=== PATIENT | male | born 1970 | race Two or more races ===

== ENCOUNTER 2021-11-03 20:32 | Inpatient (IN) | payer MEDICAID, OTHER, SELFPAY ==
[~2021-11-03] VITALS: Ht 182.9 cm; Wt 132.0 kg
[2021-11-03 22:21] LABS: Eosinophils # (auto) 0 10 ^3/uL (0-0.8); Lymphocytes # (auto) 0.3 10 ^3/uL (0.4-5.4); Mean Corpuscular Hgb Conc. 32.9 g/dL (32.0-36.0); Red Cell Distribution Width 15.4 % (11.8-14.3)
[2021-11-03 22:23] LABS: Basophils # (auto) 0.1 10 ^3/uL (0-0.2); Basophils % (auto) 0.7 % (0.0-2.0); Hemoglobin 19.4 g/dL (13.5-17.5); Lymphocytes % (auto) 3.3 % (10.0-50.0); Mean Corpuscular Hemoglobin 29.3 pg (28.0-32.0); Mean Corpuscular Volume 88.9 fL (80.0-100.0); Monocytes # (auto) 0.7 10 ^3/uL (0-1.3); Monocytes % (auto) 7.6 % (0.0-12.0); Neutrophils # (auto) 8.4 10 ^3/uL (1.6-8.6); Neutrophils % (auto) 88.4 % (37.0-80.0); Nucleated Red Blood Cells % 0.3 %; Red Blood Cells 6.65 10^6/uL (4.5-5.90); White Blood Cell 9.5 10^3/uL (4.4-10.8)
[2021-11-03 22:30] LABS: Hematocrit 59.1 % (41.0-53.0)
[2021-11-03] MEDS ORDERED: HYDROmorphone HCL 2 MG/ML VL IV ONE (22:30)
[2021-11-03 22:51] LABS: Albumin 2.8 g/dL (3.4-5.0); Calcium 8.4 mg/dL (8.5-10.1)
[2021-11-03 23:01] LABS: BUN/Creatinine Ratio 17.1; Bilirubin, Total 1.9 mg/dL (0.2-1.0); Total Protein 7.9 g/dL (6.4-8.2)
[2021-11-04] MEDS ORDERED: HYDROcodone-ACET 5/325MG TAB PO PRN (03:15)
[2021-11-04] MEDS ORDERED: ONDANSETRON HCL 4 MG/2 ML VIAL IV PRN (03:15)
[2021-11-04] MEDS ORDERED: MORPHINE SULFATE INJECTION 2 MG/ML SYRG IV PRN (03:15)
[2021-11-04] MEDS ORDERED: NITROGLYCERIN 0.4 MG SL TAB SL PRN (03:15)
[2021-11-04] MEDS ORDERED: DOCUSATE SOD 100 MG CAP PO PRN (03:15)
[2021-11-04 07:06] LABS: Eosinophils # (auto) 0 10 ^3/uL (0-0.8); Lymphocytes # (auto) 0.6 10 ^3/uL (0.4-5.4)
[2021-11-04 07:08] LABS: Basophils # (auto) 0.1 10 ^3/uL (0-0.2); Basophils % (auto) 0.8 % (0.0-2.0); Hematocrit 55.9 % (41.0-53.0); Hemoglobin 18.3 g/dL (13.5-17.5); Lymphocytes % (auto) 5.8 % (10.0-50.0); Mean Corpuscular Hgb Conc. 32.7 g/dL (32.0-36.0); Mean Corpuscular Volume 88.6 fL (80.0-100.0); Monocytes # (auto) 1.1 10 ^3/uL (0-1.3); Monocytes % (auto) 11.8 % (0.0-12.0); Neutrophils # (auto) 7.8 10 ^3/uL (1.6-8.6); Neutrophils % (auto) 81.6 % (37.0-80.0); Nucleated Red Blood Cells % 0.4 %; Red Cell Distribution Width 15.7 % (11.8-14.3); White Blood Cell 9.6 10^3/uL (4.4-10.8)
[2021-11-04 07:51] LABS: Alanine Aminotransferase 72 U/L (16-61); Albumin 2.4 g/dL (3.4-5.0); Alkaline Phosphatase 111 U/L (45-117); Anion Gap 9 (5-15); Aspartate Aminotransferase 195 U/L (15-37); BUN/Creatinine Ratio 18.1; Bilirubin, Total 3.3 mg/dL (0.2-1.0); Blood Urea Nitrogen 42 mg/dL (7-18); Calcium 8.5 mg/dL (8.5-10.1); Carbon Dioxide 21 mmol/L (21-32); Chloride 105 mmol/L (98-107); GFR African American 38 mL/min; GFR Non-African American 32 mL/min; Glucose 106 mg/dL (74-106); Potassium 4.5 mmol/L (3.5-5.1); Sodium 135 mmol/L (136-145); Total Protein 7.9 g/dL (6.4-8.2)
[2021-11-04] MEDS ORDERED: HEPARIN 1,000 UNITS/ml 1ML VIAL IV ONE (08:15)
[2021-11-04] MEDS ORDERED: HEPARIN SODIUM (PORCINE) 5000 UNITS/ML 1ML VIAL SC SCH (10:00)
[2021-11-04] MEDS ORDERED: FAMOTIDINE (10MG/ML) 2ML VL IV SCH (10:00)
[2021-11-04] MEDS: SODIUM CHLORIDE 0.9% 1,000 ML IV SCH ×2 (12:37→21:47)
[2021-11-04] MEDS: ZINC SULFATE 220mg CAP or TAB PO SCH (12:37)
[2021-11-04] MEDS: FAMOTIDINE (10MG/ML) 2ML VL IV SCH (12:38)
[2021-11-04] MEDS: ASCORBIC ACID 500 MG TAB PO SCH ×2 (12:38→23:47)
[2021-11-04] MEDS: MULTIPLE VITAMIN TAB PO SCH (12:38)
[2021-11-04] MEDS: AZITHROMYCIN 500MG/ 250ML 250 ML IV SCH (12:39)
[2021-11-04] MEDS ORDERED: LORazepam 2MG/ML-1ML VIAL IV PRN (15:15)
[2021-11-04 15:52] LABS: Cholesterol 104 mg/dL (< 200); HDL Cholesterol 28 mg/dL (40-59); LDL Cholesterol 68 mg/dL (< 100); Triglycerides 125 mg/dL (< 150)
[2021-11-04] MEDS: HEPARIN SODIUM (PORCINE) 5000 UNITS/ML 1ML VIAL SC SCH (23:48)
[2021-11-05 00:20] VITALS: BP 154/96
[2021-11-05 05:00] VITALS: BP 162/88
[2021-11-05 08:06] LABS: Albumin 2.3 g/dL (3.4-5.0); Calcium 8.3 mg/dL (8.5-10.1); Potassium 4.7 mmol/L (3.5-5.1)
[2021-11-05 08:10] LABS: BUN/Creatinine Ratio 20.9; Bilirubin, Total 2.3 mg/dL (0.2-1.0); Total Protein 6.8 g/dL (6.4-8.2)
[2021-11-05 08:16] LABS: Basophils # (auto) 0 10 ^3/uL (0-0.2); Basophils % (auto) 0.5 % (0.0-2.0); Eosinophils # (auto) 0 10 ^3/uL (0-0.8); Hematocrit 51.7 % (41.0-53.0); Hemoglobin 16.9 g/dL (13.5-17.5); Lymphocytes # (auto) 0.7 10 ^3/uL (0.4-5.4); Lymphocytes % (auto) 14.4 % (10.0-50.0); Mean Corpuscular Hemoglobin 29.3 pg (28.0-32.0); Mean Corpuscular Hgb Conc. 32.6 g/dL (32.0-36.0); Mean Corpuscular Volume 89.7 fL (80.0-100.0); Monocytes # (auto) 0.6 10 ^3/uL (0-1.3); Monocytes % (auto) 12.2 % (0.0-12.0); Neutrophils # (auto) 3.3 10 ^3/uL (1.6-8.6); Neutrophils % (auto) 72.9 % (37.0-80.0); Nucleated Red Blood Cells % 0.3 %; Red Blood Cells 5.76 10^6/uL (4.5-5.90); Red Cell Distribution Width 15.7 % (11.8-14.3); White Blood Cell 4.6 10^3/uL (4.4-10.8)
[2021-11-05 08:37] VITALS: BP 164/103
[2021-11-05] MEDS: cefTRIAXone 1GM/50ML D5W 50 ML IV SCH (09:00)
[2021-11-05] MEDS: FAMOTIDINE (10MG/ML) 2ML VL IV SCH (09:01)
[2021-11-05] MEDS: THIAMINE 100mg/ml INJ (200mg/2ml VIAL) IV SCH (09:01)
[2021-11-05] MEDS: ASCORBIC ACID 500 MG TAB PO SCH ×2 (09:01→22:53)
[2021-11-05] MEDS: ZINC SULFATE 220mg CAP or TAB PO SCH (09:01)
[2021-11-05] MEDS: MULTIPLE VITAMIN TAB PO SCH (10:00)
[2021-11-05] MEDS: AZITHROMYCIN 500MG/ 250ML 250 ML IV SCH (10:02)
[2021-11-05] MEDS: HEPARIN SODIUM (PORCINE) 5000 UNITS/ML 1ML VIAL SC SCH (10:04)
[2021-11-05 10:42] LABS: Urine Bacteria NONE SEEN /hpf (None Seen); Urine Blood 1+ /uL (Negative); Urine Mucus FEW (None Seen); Urine WBC 1 /hpf (0 - 3)
[2021-11-05 12:36] VITALS: BP 150/94
[2021-11-05] MEDS ORDERED: METOPROLOL TARTRATE 25 MG TAB PO ONE (12:45)
[2021-11-05] MEDS ORDERED: ASPirin 81 mg TAB PO ONE (12:45)
[2021-11-05] MEDS ORDERED: ENOXAPARIN SOD 150 MG/1 ML SYRINGE SC ONE (13:30)
[2021-11-05] MEDS ORDERED: ACETAMINOPHEN 500 MG TAB PO PRN (13:45)
[2021-11-05] MEDS ORDERED: ALBUTEROL SULF HFA 90MCG INH 200DOSE IN PRN ×2 (13:45)
[2021-11-05] MEDS ORDERED: REMDESIVIR PER PHARMACY 0 ML IV SCH (13:45)
[2021-11-05] MEDS ORDERED: REMDESIVIR 200 MG in NS 210ml LOADING DOSE ADULT IV ONE (15:00)
[2021-11-05 16:00] VITALS: BP 132/97
[2021-11-05 17:35] LABS: Protein, Urine 157.1 mg/dL (0.0-11.9)
[2021-11-05] MEDS: BUDESONIDE (INHALATION) 180 MCG IH IN SCH (19:28)
[2021-11-05 21:59] LABS: Amphetamine Screen, Urine POSITIVE (NEGATIVE); Barbiturate Scree,Urine NEGATIVE (NEGATIVE); Benzodiazephine Screen, Urine NEGATIVE (NEGATIVE); Cannabinoid Screen, Urine NEGATIVE (NEGATIVE); Cocaine Screen, Urine NEGATIVE (NEGATIVE); Opiate Scree,Urine NEGATIVE (NEGATIVE); Phencyclidine Screen, Urine NEGATIVE (NEGATIVE)
[2021-11-05 22:00] VITALS: BP 140/71
[2021-11-05] MEDS: ENOXAPARIN SOD 150 MG/1 ML SYRINGE SC SCH (22:53)
[2021-11-05] MEDS: METOPROLOL TARTRATE 25 MG TAB PO SCH (22:53)
[2021-11-06 05:05] VITALS: BP 139/87
[2021-11-06] MEDS: BUDESONIDE (INHALATION) 180 MCG IH IN SCH ×2 (05:52→19:54)
[2021-11-06 06:59] LABS: Basophils # (auto) 0 10 ^3/uL (0-0.2); Basophils % (auto) 0.4 % (0.0-2.0); Eosinophils # (auto) 0 10 ^3/uL (0-0.8); Eosinophils % (auto) 0.1 % (0.0-7.0); Hematocrit 50.2 % (41.0-53.0); Hemoglobin 16.5 g/dL (13.5-17.5); Lymphocytes # (auto) 0.4 10 ^3/uL (0.4-5.4); Lymphocytes % (auto) 10.6 % (10.0-50.0); Mean Corpuscular Hemoglobin 29.3 pg (28.0-32.0); Mean Corpuscular Hgb Conc. 32.9 g/dL (32.0-36.0); Mean Corpuscular Volume 88.9 fL (80.0-100.0); Monocytes # (auto) 0.5 10 ^3/uL (0-1.3); Monocytes % (auto) 11.9 % (0.0-12.0); Neutrophils # (auto) 3.2 10 ^3/uL (1.6-8.6); Nucleated Red Blood Cells % 0.4 %; Red Blood Cells 5.65 10^6/uL (4.5-5.90); Red Cell Distribution Width 15.5 % (11.8-14.3); White Blood Cell 4.2 10^3/uL (4.4-10.8)
[2021-11-06 07:31] LABS: Potassium 4.1 mmol/L (3.5-5.1)
[2021-11-06 07:46] LABS: Albumin 2.1 g/dL (3.4-5.0); BUN/Creatinine Ratio 20.1; Bilirubin, Total 1.9 mg/dL (0.2-1.0); Calcium 8.2 mg/dL (8.5-10.1); Magnesium 2.6 mg/dL (1.6-2.6); Phosphorus 2.1 mg/dL (2.5-4.90)
[2021-11-06 09:00] VITALS: BP 148/66
[2021-11-06] MEDS: cefTRIAXone 1GM/50ML D5W 50 ML IV SCH (09:00)
[2021-11-06] MEDS: IVERMECTIN 3 MG TAB PO SCH (09:39)
[2021-11-06] MEDS: THIAMINE 100mg/ml INJ (200mg/2ml VIAL) IV SCH (09:39)
[2021-11-06] MEDS: METOPROLOL TARTRATE 25 MG TAB PO SCH ×2 (09:39→21:58)
[2021-11-06] MEDS: ZINC SULFATE 220mg CAP or TAB PO SCH ×2 (09:39→10:00)
[2021-11-06] MEDS: FAMOTIDINE (10MG/ML) 2ML VL IV SCH (09:39)
[2021-11-06] MEDS: MULTIPLE VITAMIN TAB PO SCH (09:39)
[2021-11-06] MEDS: DexAMETHasone SOD PHOS 10MG/1ML VIAL INJ IV SCH (09:39)
[2021-11-06] MEDS: ENOXAPARIN SOD 150 MG/1 ML SYRINGE SC SCH (09:40)
[2021-11-06] MEDS: CHOLECALCIFEROL (VITD3) 2,000 UNIT CAP/TAB PO SCH (09:40)
[2021-11-06] MEDS: ASCORBIC ACID 1,000 MG TAB PO SCH (09:40)
[2021-11-06] MEDS ORDERED: ENOXAPARIN SOD 30 MG/0.3 ML SYRINGE SC SCH (10:00)
[2021-11-06] MEDS ORDERED: ASPirin 81 mg TAB PO SCH (10:00)
[2021-11-06] MEDS: AZITHROMYCIN 500MG/ 250ML 250 ML IV SCH (10:00)
[2021-11-06 13:00] VITALS: BP 140/115
[2021-11-06] MEDS: REMDESIVIR 100mg 100 MG in SODIUM CHL 0.9% 230 ML IV SCH (15:00)
[2021-11-06 17:00] VITALS: BP 170/84
[2021-11-06] MEDS ORDERED: hydrALAZINE HCL 10 MG TAB PO ONE (17:45)
[2021-11-06] MEDS ORDERED: LORazepam 2MG/ML-1ML VIAL IV PRN (19:00)
[2021-11-06] MEDS ORDERED: LORazepam 0.5 MG TAB PO PRN (21:00)
[2021-11-06 22:00] VITALS: BP 176/112
[2021-11-07] MEDS ORDERED: diphenhdrAMINE HCL 25 MG CAP PO ONE (01:00)
[2021-11-07] MEDS: ACETAMINOPHEN 325 MG TAB PO PRN (01:37)
[2021-11-07 05:00] VITALS: BP 177/108
[2021-11-07] MEDS: hydrALAZINE HCL 10 MG TAB PO PRN ×2 (06:15→18:35)
[2021-11-07 06:36] LABS: Albumin 2.3 g/dL (3.4-5.0); Calcium 8.6 mg/dL (8.5-10.1); Potassium 4.7 mmol/L (3.5-5.1)
[2021-11-07 06:39] LABS: BUN/Creatinine Ratio 18.6
[2021-11-07 06:41] LABS: Bilirubin, Total 1.3 mg/dL (0.2-1.0); Total Protein 6.9 g/dL (6.4-8.2)
[2021-11-07 06:43] LABS: Basophils # (auto) 0 10 ^3/uL (0-0.2); Basophils % (auto) 0.1 % (0.0-2.0); Eosinophils # (auto) 0 10 ^3/uL (0-0.8); Hematocrit 47.6 % (41.0-53.0); Hemoglobin 15.4 g/dL (13.5-17.5); Lymphocytes # (auto) 0.5 10 ^3/uL (0.4-5.4); Lymphocytes % (auto) 9.1 % (10.0-50.0); Mean Corpuscular Hemoglobin 28.7 pg (28.0-32.0); Mean Corpuscular Hgb Conc. 32.3 g/dL (32.0-36.0); Mean Corpuscular Volume 88.7 fL (80.0-100.0); Monocytes # (auto) 0.7 10 ^3/uL (0-1.3); Monocytes % (auto) 12.9 % (0.0-12.0); Neutrophils # (auto) 4.1 10 ^3/uL (1.6-8.6); Neutrophils % (auto) 77.9 % (37.0-80.0); Nucleated Red Blood Cells % 0.2 %; Red Blood Cells 5.37 10^6/uL (4.5-5.90); Red Cell Distribution Width 15.2 % (11.8-14.3); White Blood Cell 5.3 10^3/uL (4.4-10.8)
[2021-11-07] MEDS: BUDESONIDE (INHALATION) 180 MCG IH IN SCH ×2 (07:09→22:00)
[2021-11-07] MEDS: ALBUTEROL SULF HFA 90MCG INH 200DOSE IN PRN (07:09)
[2021-11-07 09:00] VITALS: BP 156/127
[2021-11-07] MEDS: cefTRIAXone 1GM/50ML D5W 50 ML IV SCH (09:00)
[2021-11-07] MEDS: ASCORBIC ACID 1,000 MG TAB PO SCH (10:00)
[2021-11-07] MEDS: METOPROLOL TARTRATE 25 MG TAB PO SCH ×2 (10:00→23:32)
[2021-11-07] MEDS: ZINC SULFATE 220mg CAP or TAB PO SCH (10:00)
[2021-11-07] MEDS: MULTIPLE VITAMIN TAB PO SCH (10:00)
[2021-11-07] MEDS: CHOLECALCIFEROL (VITD3) 2,000 UNIT CAP/TAB PO SCH (10:00)
[2021-11-07] MEDS: DexAMETHasone SOD PHOS 10MG/1ML VIAL INJ IV SCH (10:00)
[2021-11-07] MEDS: AZITHROMYCIN 500MG/ 250ML 250 ML IV SCH (10:00)
[2021-11-07] MEDS: IVERMECTIN 3 MG TAB PO SCH (10:00)
[2021-11-07] MEDS: FAMOTIDINE (10MG/ML) 2ML VL IV SCH (10:00)
[2021-11-07] MEDS: THIAMINE 100mg/ml INJ (200mg/2ml VIAL) IV SCH (10:00)
[2021-11-07] MEDS ORDERED: ENOXAPARIN SOD 40 MG/0.4 ML SYRINGE SC SCH (10:00)
[2021-11-07] MEDS ORDERED: diphenhdrAMINE HCL 25 MG CAP PO PRN (11:45)
[2021-11-07 13:00] VITALS: BP 163/117
[2021-11-07] MEDS: REMDESIVIR 100mg 100 MG in SODIUM CHL 0.9% 230 ML IV SCH (14:55)
[2021-11-07 17:00] VITALS: BP 173/116
[2021-11-07 22:00] VITALS: BP 168/105
[2021-11-08 05:00] VITALS: BP 179/103
[2021-11-08] MEDS: hydrALAZINE HCL 10 MG TAB PO PRN (05:33)
[2021-11-08] MEDS: BUDESONIDE (INHALATION) 180 MCG IH IN SCH ×2 (05:54→19:35)
[2021-11-08] MEDS: ALBUTEROL SULF HFA 90MCG INH 200DOSE IN PRN ×2 (05:54→21:16)
[2021-11-08 07:20] LABS: Basophils # (auto) 0 10 ^3/uL (0-0.2); Basophils % (auto) 0.7 % (0.0-2.0); Eosinophils # (auto) 0 10 ^3/uL (0-0.8); Hematocrit 42.5 % (41.0-53.0); Lymphocytes # (auto) 0.6 10 ^3/uL (0.4-5.4); Lymphocytes % (auto) 8.5 % (10.0-50.0); Mean Corpuscular Hemoglobin 29.2 pg (28.0-32.0); Mean Corpuscular Volume 88.8 fL (80.0-100.0); Monocytes # (auto) 0.9 10 ^3/uL (0-1.3); Monocytes % (auto) 13.2 % (0.0-12.0); Neutrophils # (auto) 5.4 10 ^3/uL (1.6-8.6); Neutrophils % (auto) 77.6 % (37.0-80.0); Nucleated Red Blood Cells % 0.1 %; Red Blood Cells 4.79 10^6/uL (4.5-5.90); Red Cell Distribution Width 15.4 % (11.8-14.3)
[2021-11-08 07:36] LABS: Potassium 5.2 mmol/L (3.5-5.1)
[2021-11-08 07:54] LABS: Albumin 2.1 g/dL (3.4-5.0); BUN/Creatinine Ratio 20.9; Calcium 8.9 mg/dL (8.5-10.1)
[2021-11-08 07:57] LABS: Bilirubin, Total 1.1 mg/dL (0.2-1.0); Total Protein 7.1 g/dL (6.4-8.2)
[2021-11-08 08:00] VITALS: BP 154/100
[2021-11-08] MEDS ORDERED: amLODIPine BESYLATE 5 MG TAB PO ONE (09:00)
[2021-11-08] MEDS ORDERED: FUROSEMIDE 40 MG/4 ML VIAL IV ONE (09:00)
[2021-11-08] MEDS: cefTRIAXone 1GM/50ML D5W 50 ML IV SCH (11:30)
[2021-11-08] MEDS: DexAMETHasone SOD PHOS 10MG/1ML VIAL INJ IV SCH (11:31)
[2021-11-08] MEDS: FAMOTIDINE (10MG/ML) 2ML VL IV SCH ×2 (11:31→23:54)
[2021-11-08] MEDS: THIAMINE 100mg/ml INJ (200mg/2ml VIAL) IV SCH (11:31)
[2021-11-08] MEDS: ZINC SULFATE 220mg CAP or TAB PO SCH (11:32)
[2021-11-08] MEDS: METOPROLOL TARTRATE 25 MG TAB PO SCH ×2 (11:32→22:00)
[2021-11-08] MEDS: AZITHROMYCIN 500MG/ 250ML 250 ML IV SCH (11:32)
[2021-11-08] MEDS: ASCORBIC ACID 1,000 MG TAB PO SCH (11:33)
[2021-11-08] MEDS: MULTIPLE VITAMIN TAB PO SCH (11:33)
[2021-11-08] MEDS: IVERMECTIN 3 MG TAB PO SCH (11:33)
[2021-11-08] MEDS: CHOLECALCIFEROL (VITD3) 2,000 UNIT CAP/TAB PO SCH (11:33)
[2021-11-08 13:05] VITALS: BP 157/95
[2021-11-08] MEDS: REMDESIVIR 100mg 100 MG in SODIUM CHL 0.9% 230 ML IV SCH (15:41)
[2021-11-08 16:40] VITALS: BP 150/90
[2021-11-08 20:56] VITALS: BP 145/96
[2021-11-09 05:00] VITALS: BP 159/108
[2021-11-09 08:31] LABS: Basophils # (auto) 0 10 ^3/uL (0-0.2); Basophils % (auto) 0.5 % (0.0-2.0); Eosinophils # (auto) 0 10 ^3/uL (0-0.8); Hematocrit 43.1 % (41.0-53.0); Lymphocytes # (auto) 0.9 10 ^3/uL (0.4-5.4); Lymphocytes % (auto) 12.6 % (10.0-50.0); Mean Corpuscular Hgb Conc. 32.5 g/dL (32.0-36.0); Mean Corpuscular Volume 89.2 fL (80.0-100.0); Monocytes # (auto) 0.8 10 ^3/uL (0-1.3); Monocytes % (auto) 11.4 % (0.0-12.0); Neutrophils # (auto) 5.6 10 ^3/uL (1.6-8.6); Neutrophils % (auto) 75.5 % (37.0-80.0); Nucleated Red Blood Cells % 0.2 %; Red Blood Cells 4.83 10^6/uL (4.5-5.90); White Blood Cell 7.4 10^3/uL (4.4-10.8)
[2021-11-09 08:34] LABS: Potassium 4.2 mmol/L (3.5-5.1)
[2021-11-09 08:36] VITALS: BP 168/103
[2021-11-09 08:45] LABS: Albumin 2.5 g/dL (3.4-5.0); BUN/Creatinine Ratio 25.6; Bilirubin, Total 1.1 mg/dL (0.2-1.0); Calcium 8.6 mg/dL (8.5-10.1); Total Protein 7.5 g/dL (6.4-8.2)
[2021-11-09] MEDS: BUDESONIDE (INHALATION) 180 MCG IH IN SCH ×3 (08:45→20:21)
[2021-11-09] MEDS: ALBUTEROL SULF HFA 90MCG INH 200DOSE IN PRN ×2 (08:45→20:21)
[2021-11-09] MEDS: THIAMINE 100mg/ml INJ (200mg/2ml VIAL) IV SCH (09:20)
[2021-11-09] MEDS: DexAMETHasone SOD PHOS 10MG/1ML VIAL INJ IV SCH (09:20)
[2021-11-09] MEDS: IVERMECTIN 3 MG TAB PO SCH (09:21)
[2021-11-09] MEDS: CHOLECALCIFEROL (VITD3) 2,000 UNIT CAP/TAB PO SCH (09:21)
[2021-11-09] MEDS: FAMOTIDINE (10MG/ML) 2ML VL IV SCH ×2 (09:21→21:26)
[2021-11-09] MEDS: ZINC SULFATE 220mg CAP or TAB PO SCH (09:22)
[2021-11-09] MEDS: amLODIPine BESYLATE 5 MG TAB PO SCH (09:22)
[2021-11-09] MEDS: ASCORBIC ACID 1,000 MG TAB PO SCH (09:23)
[2021-11-09] MEDS: MULTIPLE VITAMIN TAB PO SCH (09:23)
[2021-11-09] MEDS: hydrALAZINE HCL 10 MG TAB PO PRN (09:24)
[2021-11-09] MEDS: METOPROLOL TARTRATE 25 MG TAB PO SCH ×2 (09:24→21:28)
[2021-11-09] MEDS: cefTRIAXone 1GM/50ML D5W 50 ML IV SCH (09:24)
[2021-11-09] MEDS ORDERED: AMIODARONE HCL 200 MG TAB PO ONE (11:00)
[2021-11-09 12:31] VITALS: BP 159/65
[2021-11-09] MEDS: AZITHROMYCIN 500MG/ 250ML 250 ML IV SCH (12:53)
[2021-11-09] MEDS: REMDESIVIR 100mg 100 MG in SODIUM CHL 0.9% 230 ML IV SCH (16:24)
[2021-11-09 17:00] VITALS: BP 152/99
[2021-11-09] MEDS: AMIODARONE HCL 200 MG TAB PO SCH (21:27)
[2021-11-09 21:28] VITALS: BP 151/82
[2021-11-10] MEDS: ACETAMINOPHEN 325 MG TAB PO PRN (04:11)
[2021-11-10 05:00] VITALS: BP 158/87
[2021-11-10] MEDS: BUDESONIDE (INHALATION) 180 MCG IH IN SCH ×2 (06:09→19:41)
[2021-11-10] MEDS: ALBUTEROL SULF HFA 90MCG INH 200DOSE IN PRN ×2 (06:10→19:41)
[2021-11-10 07:05] LABS: Calcium 8.5 mg/dL (8.5-10.1); Potassium 3.9 mmol/L (3.5-5.1)
[2021-11-10 07:18] LABS: BUN/Creatinine Ratio 24.5
[2021-11-10 09:00] VITALS: BP 177/91
[2021-11-10] MEDS: DexAMETHasone SOD PHOS 10MG/1ML VIAL INJ IV SCH (09:04)
[2021-11-10] MEDS: THIAMINE 100mg/ml INJ (200mg/2ml VIAL) IV SCH (09:04)
[2021-11-10] MEDS: cefTRIAXone 1GM/50ML D5W 50 ML IV SCH (09:04)
[2021-11-10] MEDS: FAMOTIDINE (10MG/ML) 2ML VL IV SCH ×2 (09:04→22:28)
[2021-11-10] MEDS: ASCORBIC ACID 1,000 MG TAB PO SCH (09:05)
[2021-11-10] MEDS: amLODIPine BESYLATE 5 MG TAB PO SCH (09:05)
[2021-11-10] MEDS: CHOLECALCIFEROL (VITD3) 2,000 UNIT CAP/TAB PO SCH (09:05)
[2021-11-10] MEDS: AMIODARONE HCL 200 MG TAB PO SCH ×2 (09:05→22:39)
[2021-11-10] MEDS: METOPROLOL TARTRATE 25 MG TAB PO SCH ×2 (09:05→22:40)
[2021-11-10] MEDS: ZINC SULFATE 220mg CAP or TAB PO SCH (09:05)
[2021-11-10] MEDS: IVERMECTIN 3 MG TAB PO SCH (09:05)
[2021-11-10] MEDS: AZITHROMYCIN 500MG/ 250ML 250 ML IV SCH (09:05)
[2021-11-10] MEDS: MULTIPLE VITAMIN TAB PO SCH (09:05)
[2021-11-10] MEDS: LABETALOL HCL 5 MG/ML 4ML SYRINGE IV PRN ×2 (09:09→17:24)
[2021-11-10 13:00] VITALS: BP 148/89
[2021-11-10 17:00] VITALS: BP 178/88
[2021-11-10 22:00] VITALS: BP 151/87
[2021-11-11 05:00] VITALS: BP 150/75
[2021-11-11 05:37] LABS: Basophils # (auto) 0 10 ^3/uL (0-0.2); Basophils % (auto) 0.3 % (0.0-2.0); Eosinophils # (auto) 0 10 ^3/uL (0-0.8); Hematocrit 41.8 % (41.0-53.0); Lymphocytes % (auto) 7.1 % (10.0-50.0); Mean Corpuscular Hemoglobin 29.2 pg (28.0-32.0); Mean Corpuscular Hgb Conc. 33.4 g/dL (32.0-36.0); Mean Corpuscular Volume 87.5 fL (80.0-100.0); Monocytes % (auto) 7.7 % (0.0-12.0); Neutrophils # (auto) 11.5 10 ^3/uL (1.6-8.6); Neutrophils % (auto) 84.9 % (37.0-80.0); Nucleated Red Blood Cells % 0.1 %; Red Blood Cells 4.78 10^6/uL (4.5-5.90); White Blood Cell 13.6 10^3/uL (4.4-10.8)
[2021-11-11] MEDS: BUDESONIDE (INHALATION) 180 MCG IH IN SCH ×2 (05:43→18:52)
[2021-11-11] MEDS: ALBUTEROL SULF HFA 90MCG INH 200DOSE IN PRN ×2 (05:43→18:52)
[2021-11-11 05:57] LABS: Albumin 2.6 g/dL (3.4-5.0); Calcium 8.7 mg/dL (8.5-10.1); Potassium 3.7 mmol/L (3.5-5.1)
[2021-11-11 06:02] LABS: BUN/Creatinine Ratio 19.7; Bilirubin, Total 1.8 mg/dL (0.2-1.0); Total Protein 7.5 g/dL (6.4-8.2)
[2021-11-11 09:00] VITALS: BP 182/108
[2021-11-11] MEDS: amLODIPine BESYLATE 5 MG TAB PO SCH (09:11)
[2021-11-11] MEDS: METOPROLOL TARTRATE 25 MG TAB PO SCH ×2 (09:11→22:13)
[2021-11-11] MEDS: cefTRIAXone 1GM/50ML D5W 50 ML IV SCH (09:53)
[2021-11-11] MEDS: THIAMINE 100mg/ml INJ (200mg/2ml VIAL) IV SCH (09:53)
[2021-11-11] MEDS: DexAMETHasone SOD PHOS 10MG/1ML VIAL INJ IV SCH (09:53)
[2021-11-11] MEDS: AZITHROMYCIN 500MG/ 250ML 250 ML IV SCH (09:53)
[2021-11-11] MEDS: ZINC SULFATE 220mg CAP or TAB PO SCH (09:54)
[2021-11-11] MEDS: MULTIPLE VITAMIN TAB PO SCH (09:54)
[2021-11-11] MEDS: ASCORBIC ACID 1,000 MG TAB PO SCH (09:54)
[2021-11-11] MEDS: FAMOTIDINE (10MG/ML) 2ML VL IV SCH ×2 (09:54→22:12)
[2021-11-11] MEDS: AMIODARONE HCL 200 MG TAB PO SCH ×3 (09:54→22:12)
[2021-11-11] MEDS: CHOLECALCIFEROL (VITD3) 2,000 UNIT CAP/TAB PO SCH (09:54)
[2021-11-11 13:00] VITALS: BP 161/103
[2021-11-11] MEDS: LABETALOL HCL 5 MG/ML 4ML SYRINGE IV PRN (14:18)
[2021-11-11 17:00] VITALS: BP 160/112
[2021-11-11] MEDS ORDERED: LABETALOL HCL 5 MG/ML ML 20ML VIAL IV PRN (18:45)
[2021-11-11 20:52] VITALS: BP 151/104
[2021-11-12 05:00] VITALS: BP 146/98
[2021-11-12 06:29] LABS: Basophils # (auto) 0 10 ^3/uL (0-0.2); Basophils % (auto) 0.2 % (0.0-2.0); Eosinophils # (auto) 0 10 ^3/uL (0-0.8); Hematocrit 41.3 % (41.0-53.0); Hemoglobin 13.9 g/dL (13.5-17.5); Lymphocytes # (auto) 0.9 10 ^3/uL (0.4-5.4); Lymphocytes % (auto) 6.1 % (10.0-50.0); Mean Corpuscular Hgb Conc. 33.7 g/dL (32.0-36.0); Mean Corpuscular Volume 88.9 fL (80.0-100.0); Monocytes % (auto) 6.5 % (0.0-12.0); Neutrophils # (auto) 12.9 10 ^3/uL (1.6-8.6); Neutrophils % (auto) 87.2 % (37.0-80.0); Nucleated Red Blood Cells % 0.1 %; Red Blood Cells 4.65 10^6/uL (4.5-5.90); White Blood Cell 14.7 10^3/uL (4.4-10.8)
[2021-11-12 06:42] LABS: Albumin 2.5 g/dL (3.4-5.0); Calcium 8.8 mg/dL (8.5-10.1); Potassium 3.8 mmol/L (3.5-5.1)
[2021-11-12 06:44] LABS: BUN/Creatinine Ratio 16.1
[2021-11-12 06:47] LABS: Bilirubin, Total 2.2 mg/dL (0.2-1.0); Total Protein 7.6 g/dL (6.4-8.2)
[2021-11-12] MEDS: ALBUTEROL SULF HFA 90MCG INH 200DOSE IN PRN (08:30)
[2021-11-12] MEDS: BUDESONIDE (INHALATION) 180 MCG IH IN SCH ×2 (08:30→21:20)
[2021-11-12 09:00] VITALS: BP 151/90
[2021-11-12] MEDS: cefTRIAXone 1GM/50ML D5W 50 ML IV SCH (09:27)
[2021-11-12] MEDS: DexAMETHasone SOD PHOS 10MG/1ML VIAL INJ IV SCH (09:28)
[2021-11-12] MEDS: THIAMINE 100mg/ml INJ (200mg/2ml VIAL) IV SCH (09:28)
[2021-11-12] MEDS: FAMOTIDINE (10MG/ML) 2ML VL IV SCH ×2 (09:28→21:52)
[2021-11-12] MEDS: AZITHROMYCIN 500MG/ 250ML 250 ML IV SCH (09:29)
[2021-11-12] MEDS: ASCORBIC ACID 1,000 MG TAB PO SCH (09:30)
[2021-11-12] MEDS: MULTIPLE VITAMIN TAB PO SCH (09:30)
[2021-11-12] MEDS: METOPROLOL TARTRATE 25 MG TAB PO SCH ×2 (09:30→21:53)
[2021-11-12] MEDS: AMIODARONE HCL 200 MG TAB PO SCH ×2 (09:30→21:53)
[2021-11-12] MEDS: CHOLECALCIFEROL (VITD3) 2,000 UNIT CAP/TAB PO SCH (09:30)
[2021-11-12] MEDS: ZINC SULFATE 220mg CAP or TAB PO SCH (09:30)
[2021-11-12] MEDS: amLODIPine BESYLATE 5 MG TAB PO SCH (09:31)
[2021-11-12 13:00] VITALS: BP 147/104
[2021-11-12 17:00] VITALS: BP 145/80
[2021-11-12 22:00] VITALS: BP 144/95
== END 2021-11-13 00:45 | disposition left against medical advice (07) | DRG 177 ==
LOC: ER 20:41 → OVERFLOW 11-04 03:13 → WEST WING 11-04 23:52 → TELE-WESTW 11-05 09:29 → TELE-EAST 11-08 20:32 → TELE-E-ADS 11-09 23:23
PROVIDERS: ADMIT Nurse Practitioner Family; ATTEND Internal Medicine Pulmonary Disease
PROC: XW033E5 Introduction of Remdesivir Anti-infective into Peripheral Vein, Percutaneous Approach, New Technology Group 5 (ICD-10-PCS; principal; 2021-11-05)
DX: U07.1 COVID-19 (principal); J96.01 Acute respiratory failure with hypoxia; J12.82 Pneumonia due to coronavirus disease 2019; I21.4 Non-ST elevation (NSTEMI) myocardial infarction; G93.41 Metabolic encephalopathy; G93.6 Cerebral edema; I61.9 Nontraumatic intracerebral hemorrhage, unspecified; N17.9 Acute kidney failure, unspecified; G93.1 Anoxic brain damage, not elsewhere classified; I13.0 Hypertensive heart and chronic kidney disease with heart failure and stage 1 through stage 4 chronic kidney disease, or unspecified chronic kidney disease; D75.1 Secondary polycythemia; E88.09 Other disorders of plasma-protein metabolism, not elsewhere classified; Z23 Encounter for immunization; Z53.29 Procedure and treatment not carried out because of patient's decision for other reasons; E66.01 Morbid (severe) obesity due to excess calories; F17.200 Nicotine dependence, unspecified, uncomplicated; N18.32 Chronic kidney disease, stage 3b; N28.89 Other specified disorders of kidney and ureter; I50.82 Biventricular heart failure; M54.50 Low back pain, unspecified; R00.0 Tachycardia, unspecified; I48.0 Paroxysmal atrial fibrillation; I16.0 Hypertensive urgency; Z59.00 Homelessness unspecified; Z68.38 Body mass index [BMI] 38.0-38.9, adult
CPT/HCPCS: 36415; 36600; 70450; 71045; 71250; 76775; 80048; 80053; 80061; 80307; 81001; 82306; 82570; 82728; 82805; 83036; 83615; 83735; 83880; 83970; 84100; 84156; 84300; 84443; 84484; 85025; 86141; 87426; 93005; 93306; 93886; 93970; 94640; 95819; 96361; 96374; 97110; 97116; 97163; 97530; G0378; J0696; J1100; J2405; J3490